=== PATIENT | male | born 1980 | race Caucasian/White ===

== ENCOUNTER 2017-04-17 11:25 | Outpatient (RCR) | payer OTHER ==
[2017-04-11 19:30] VITALS: BP 136/89
[2017-04-11 19:42] VITALS: BP 136/89
[2017-04-11 19:45] VITALS: BP 136/89
[2017-04-12 08:47] LABS: BUN/CREATININE RATIO 28; CALCIUM 9.4 MG/DL (8.5-10.1); CARBON DIOXIDE 22 MMOL/L (21-32); CHLORIDE 106 MMOL/L (98-107); CREATININE SERUM 0.69 MG/DL (0.60-1.30); GFR ESTIMATED > 60; GLUCOSE 97 MG/DL (70-105); POTASSIUM 4.2 MMOL/L (3.6-5.0); SODIUM 138 MMOL/L (135-145)
[2017-04-12 09:17] VITALS: BP_SYST 118; BP_SYST 136; BP_DIAS 82; BP_DIAS 89
[2017-04-12 20:55] VITALS: BP 149/97
[2017-04-13 10:00] VITALS: BP 137/97
--- NOTE | 2017-04-13 11:44 | Physician Query-Final Dx ---
JAZIEL ADLER 04/13/17 1144: Clinic Account Progress/Dx Physician Query: Please give a diagnosis for the patients Vancomycin treatment thank you Date of Service Apr 13, 2017 at 10:08 JE CAMARGO 05/11/17 1516: JAZIEL ADLER Apr 13, 2017 11:44 JE CAMARGO May 11, 2017 15:16
[2017-04-13] MEDS: VANCOMYCIN INJECTION 1,750 MG in NS IV 500 ML 500 ML IV SCH ×2 (11:56→20:36)
[2017-04-13 22:42] VITALS: BP 136/86
[2017-04-14] MEDS: CATHETER FLUSH 10 ML SYR IV PRN ×2 (10:54→12:55)
[2017-04-14] MEDS: VANCOMYCIN INJECTION 1,750 MG in NS IV 500 ML 500 ML IV SCH (10:55)
[2017-04-14 13:29] VITALS: BP 134/96
[2017-04-14] MEDS: VANCOMYCIN INJECTION 2,000 MG in NS IV 500 ML 500 ML IV SCH (21:22)
[2017-04-15 01:29] VITALS: BP 140/95
[2017-04-15] MEDS: VANCOMYCIN INJECTION 2,000 MG in NS IV 500 ML 500 ML IV SCH ×2 (11:15→20:29)
[2017-04-15] MEDS: CATHETER FLUSH 10 ML SYR IV PRN (11:15)
[2017-04-15 12:19] VITALS: BP 138/104
[2017-04-15 12:21] VITALS: BP 138/104
[2017-04-15 13:31] VITALS: BP 138/104
[2017-04-15 23:35] VITALS: BP 129/88
[2017-04-16 12:00] VITALS: BP 131/93
[2017-04-16] MEDS: CATHETER FLUSH 10 ML SYR IV PRN (12:28)
[2017-04-16] MEDS: VANCOMYCIN INJECTION 2,000 MG in NS IV 500 ML 500 ML IV SCH ×2 (12:28→20:43)
[2017-04-16 22:51] VITALS: BP 135/85
[~2017-04-17] VITALS: Ht 180.3 cm; Wt 79.4 kg
[~2017-04-17 11:25] MED LIST: ACHD5005 PO; METH4TAB PO; NAPR-243 PO; NS (IVPB) 0 ML ONE; NS (IVPB) 250 ML ONE; PENI500T PO; TROUGH ORDER-PHARMACY XX NR; TROUGH ORDER-PHARMACY XX ONE; VANCOMYCIN 1000 MG/VIAL ONE; VANCOMYCIN 1250 MG/NS 250 ML IVPB IV SCH; VANCOMYCIN 1500 MG/NS 500 ML IVPB IV NR
[2017-04-17] MEDS ORDERED: PRD20T PO (12:56)
[2017-04-17] MEDS ORDERED: SULF1TAB35 PO (12:56)
== END 2017-07-10 | disposition home or self-care (01) ==
LOC: 4TH RCR 11:25
PROVIDERS: ATTEND Emergency Medicine
DX: A49.02 Methicillin resistant Staphylococcus aureus infection, unspecified site (principal)
CPT/HCPCS: 36415; 80048; 80202; 96365; 96366

== ENCOUNTER 2017-10-11 16:06 | Inpatient (IN) | payer OTHER ==
[~2017-10-11] VITALS: Ht 180.3 cm; Wt 86.6 kg
[~2017-10-11 16:06] MED LIST changes: -NS (IVPB) 0 ML ONE; -NS (IVPB) 250 ML ONE; +PRD20T PO; +SULF1TAB35 PO; -TROUGH ORDER-PHARMACY XX NR; -TROUGH ORDER-PHARMACY XX ONE; -VANCOMYCIN 1000 MG/VIAL ONE; -VANCOMYCIN 1250 MG/NS 250 ML IVPB IV SCH; -VANCOMYCIN 1500 MG/NS 500 ML IVPB IV NR
[2017-10-11] MEDS ORDERED: LACTATED RINGERS 1,000 ML IV ONE (16:21)
[2017-10-11] MEDS ORDERED: ONDANSETRON 4 MG/2 ML (SDV) Z0FRAN IVP PRN (16:30)
--- NOTE | 2017-10-11 16:30 | ED General ---
General Stated Complaint: NOT EATEN SINCE THURSDAY Source of Information: Patient, EMS, Old Records Exam Limitations: No Limitations History of Present Illness Date Seen by Provider: October 11, 2017 Time Seen by Provider: 16:14 Initial Comments The patient resents to the ER by EMS with a chief complaint that he woke up today feeling very poorly. He was not feeling well yesterday but today he is having nausea with vomiting times one with no blood in it. No diarrhea or constipation. He says he felt feverish yesterday but has not checked her temperature. He did take some Tylenol this morning. He is not to keep anything down. He also has a very dry mouth. He says for the past week he discovered his dog had been killed by some other neighborhood dog so he has been very depressed and not been eating or drinking and then today woke up just feeling very poorly and sick. He does have a history of high blood pressure but does not take any medicines for anything for the past for 5 years because he stopped following with [facility]. He also incidentally found a nodule on his liver for 5 years ago on an MRI of his spine that he never followed up on. He denies having HIV, hepatitis or any IV drug use or tattoos from unlicensed [facility]. He also has a history of prolapsed mitral valve that was repaired by judge in [place] many years ago. EMS reports he is tachycardic 120s to 130s and received 4 mg Zofran en route. They started a liter of saline. Allergies and Home Medications Allergies Coded Allergies: tramadol (Unverified Allergy, Intermediate, STOMACH UPSET, 08/15/09) vancomycin (Verified Allergy, Intermediate, 04/17/17) Uncoded Allergies: [id number] (DARVOCET A500) (Allergy, Mild, SWELLING, 01/12/09) Tylenol w/ Codiene (Allergy, Mild, rash, itching, mild swelling, 01/12/09) Home Medications Methylprednisolone 4 Mg Tab.ds.pk, 4 MG PO UD Prescribed by: MISBAH SERRANO on 03/25/15 1419 Naproxen 500 Mg Tablet, 1 EACH PO TID PRN FOR PAIN Prescribed by: ERENDIRA MCGREGOR on 08/15/09 2133 Penicillin V Potassium 500 Mg Tablet, 1 TAB PO QID FOR INFECTION Prescribed by: ERENDIRA MCGREGOR on 08/15/092132 Prednisone 20 Mg Tab, 40 MG PO DAILY Prescribed by: MISBAH SERRANO on 04/17/17 1256 Sulfamethoxazole/Trimethoprim 1 Each Tablet, 1 EACH PO BID Prescribed by: MISBAH SERRANO on 04/17/17 1256 Patient Home Medication List Home Medication List Reviewed: Yes Review of Systems Constitutional: No chills, No diaphoresis EENTM: No ear discharge, No ear pain Respiratory: cough (he states chronic); No phlegm, No short of breath, No wheezing Cardiovascular: see HPI; No chest pain, No edema; Hx of Intervention; No palpitations, No syncope, No vascular heart diseas Gastrointestinal: abdominal pain (all over); No constipation, No diarrhea; nausea, vomiting Genitourinary: No discharge, No dysuria Musculoskeletal: No back pain, No joint pain Skin: No pruritus, No rash Psychiatric/Neurological: Denies Headache, Denies Numbness, Denies Paresthesia Past Bpezafl-Mevnbf-Yxeuud Hx Patient Social History Alcohol Use: Regular Use Alcohol Beverage of Choice: Whiskey (approximately one week last drink was yesterday afternoon) Recreational Drug Use: No Smoking Status: Current Everyday Smoker Type Used: Cigarettes (one pack per day) 2nd Hand Smoke Exposure: No Recent Hopitalizations: No Seasonal Allergies Seasonal Allergies: No Past Medical History Surgeries: Yes (r lnee, l hand, r ahoulder, l nava, head) Abdominal, Orthopedic Respiratory: Yes (asthma) Cardiac: Yes (MITRAL VALVE PROLAPSE WITH REGURGITATION) Hypertension Neurological: No Reproductive Disorders: No Genitourinary: No Gastrointestinal: No Musculoskeletal: Yes (HAS BEEN TOLD HAS OSTEOARTHRITIS IN RIGHT HIP) Degenerate Disk Disease Endocrine: No Psychosocial: Yes Anxiety Integumentary: Yes (hx mrsa) Blood Disorders: No Physical Exam-Suspected Sepsis Physical Exam Vital Signs Vital Signs - First Documented 10/11/17 16:09 Temp 97.6 Pulse 139 Resp 22 B/P (MAP) 147/112 (124) O2 Delivery Room Air Capillary Refill : General Appearance: Anxious, Mild Distress Eyes: Bilateral Eye Normal Inspection, Bilateral Eye PERRL, Bilateral Eye EOMI HEENT: PERRL/EOMI, TMs Normal, Normal ENT Inspection; No Moist Mucous Membranes ; Other (oropharynx dry with a thin white plaque on the tongue) Neck: Full Range of Motion, Non Tender, Supple Respiratory: Chest Non Tender, Lungs Clear, Normal Breath Sounds, No Accessory Muscle Use, No Respiratory Distress Cardiovascular: Regular Rate, Rhythm, No Edema, Normal Peripheral Pulses Gastrointestinal: Normal Bowel Sounds, Guarding (epigastric); No Rebound; Tenderness (all over especially epigastric) Back: Normal Inspection, No Vertebral Tenderness Extremity: Normal Capillary Refill, Non Tender, No Calf Tenderness, No Pedal Edema Neurologic/Psychiatric: Alert, Oriented x3, Other (anxious affect) Skin: diaphoresis, other (warm) Lymphatic: No Adenopathy Focused Exam Lactate Level 10/11/17 17:06: Lactic Acid Level 3.84*H Lactic Acid Level Laboratory Tests Test 10/11/17 17:06 Lactic Acid Level 3.84 MMOL/L (0.50-2.00) *H Progress/Results/Core Measures Suspected Sepsis SIRS Temperature: Pulse: Respiratory Rate: Laboratory Tests 10/11/17 16:10: White Blood Count 8.5 Blood Pressure / Mean: 10/11/17 17:06: Lactic Acid Level 3.84*H Laboratory Tests 10/11/17 16:10: Creatinine 0.77, INR Comment 0.9, Platelet Count 140, Total Bilirubin 2.1H Results/Orders Lab Results Laboratory Tests Test 10/11/17 16:10 10/11/17 16:24 10/11/17 16:25 10/11/17 16:30 Range/Units White Blood Count 8.5 4.3-11.0 10^3/uL Red Blood Count 4.51 4.35-5.85 10^6/uL Hemoglobin 14.5 13.3-17.7 G/DL Hematocrit 41 40-54 % Mean Corpuscular Volume 90 80-99 FL Mean Corpuscular Hemoglobin 32 25-34 PG Mean Corpuscular Hemoglobin Concent 36 32-36 G/DL Red Cell Distribution Width 14.4 10.0-14.5 % Platelet Count 140 130-400 10^3/uL Mean Platelet Volume 9.7 7.4-10.4 FL Neutrophils (%) (Auto) 79 H 42-75 % Lymphocytes (%) (Auto) 12 12-44 % Monocytes (%) (Auto) 9 0-12 % Eosinophils (%) (Auto) 0 0-10 % Basophils (%) (Auto) 0 0-10 % Neutrophils # (Auto) 6.8 1.8-7.8 X 10^3 Lymphocytes # (Auto) 1.0 1.0-4.0 X 10^3 Monocytes # (Auto) 0.8 0.0-1.0 X 10^3 Eosinophils # (Auto) 0.0 0.0-0.3 10^3/uL Basophils # (Auto) 0.0 0.0-0.1 10^3/uL Prothrombin Time 12.7 12.2-14.7 SEC INR Comment 0.9 0.8-1.4 Activated Partial Thromboplast Time 23 L 24-35 SEC Sodium Level 137 135-145 MMOL/L Potassium Level 3.2 L 3.6-5.0 MMOL/L Chloride Level 92 L 98-107 MMOL/L Carbon Dioxide Level 14 L 21-32 MMOL/L Anion Gap 31 H 5-14 MMOL/L Blood Urea Nitrogen 13 7-18 MG/DL Creatinine 0.77 0.60-1.30 MG/DL Estimat Glomerular Filtration Rate > 60 BUN/Creatinine Ratio 17 Glucose Level 118 H 70-105 MG/DL Calcium Level 9.6 8.5-10.1 MG/DL Total Bilirubin 2.1 H 0.1-1.0 MG/DL Aspartate Amino Transf (AST/SGOT) 499 H 5-34 U/L Alanine Aminotransferase (ALT/SGPT) 302 H 0-55 U/L Alkaline Phosphatase 105 40-136 U/L Troponin I < 0.30 <0.30 NG/ML Total Protein 7.1 6.4-8.2 GM/DL Albumin 4.8 H 3.2-4.5 GM/DL Lipase 74 8-78 U/L Serum Alcohol 29 H <10 MG/DL Salicylates Level < 5.0 L 5.0-20.0 MG/DL Acetaminophen Level < 10 L 10-30 UG/ML Group A Streptococcus Screen NEGATIVE NEGATIVE Urine Color JOSE A H Urine Clarity SLIGHTLY CLOUDY Urine pH 5 5-9 Urine Specific Embarrass 1.025 H 1.016-1.022 Urine Protein 3+ H NEGATIVE Urine Glucose (UA) NEGATIVE NEGATIVE Urine Ketones 4+ H NEGATIVE Urine Nitrite NEGATIVE NEGATIVE Urine Bilirubin 1+ H NEGATIVE Urine Urobilinogen 4 H NORMAL MG/DL Urine Leukocyte Esterase 1+ H NEGATIVE Urine RBC (Auto) 1+ H NEGATIVE Urine RBC RARE /HPF Urine WBC NONE /HPF Urine Squamous Epithelial Cells 0-2 /HPF Urine Crystals NONE /LPF Urine Bacteria NEGATIVE /HPF Urine Casts PRESENT /LPF Urine Hyaline Casts 0-2 H /LPF Urine Mucus SMALL H /LPF Urine Culture Indicated NO Urine Opiates Screen POSITIVE H NEGATIVE Urine Oxycodone Screen NEGATIVE NEGATIVE Urine Methadone Screen NEGATIVE NEGATIVE Urine Propoxyphene Screen NEGATIVE NEGATIVE Urine Barbiturates Screen NEGATIVE NEGATIVE Ur Tricyclic Antidepressants Screen NEGATIVE NEGATIVE Urine Phencyclidine Screen NEGATIVE NEGATIVE Urine Amphetamines Screen NEGATIVE NEGATIVE Urine Methamphetamines Screen NEGATIVE NEGATIVE Urine Benzodiazepines Screen NEGATIVE NEGATIVE Urine Cocaine Screen NEGATIVE NEGATIVE Urine Cannabinoids Screen NEGATIVE NEGATIVE Test 10/11/17 17:06 Range/Units Lactic Acid Level 3.84 *H 0.50-2.00 MMOL/L Micro Results Microbiology 10/11/17 EVITA Preparation - Final, Complete 10/11/17 Influenza Types A,B Antigen (BELKIS) - Final, Complete My Orders Orders - RADHA TOPETE Influenza A And B Antigens (10/11/17 16:21) Rapid Strep A Screen (10/11/17 16:21) Post Void Residual Assessment (10/11/17 16:21) Accucheck Stat ONCE (10/11/17 16:21) Cbc With Automated Diff (10/11/17 16:21) Comprehensive Metabolic Panel (10/11/17 16:21) Lactic Acid Analyzer (10/11/17 16:21) Blood Culture (10/11/17 16:21) Sputum Culture (10/11/17 16:21) Ua Culture If Indicated (10/11/17 16:21) Protime With Inr (10/11/17 16:21) Partial Thromboplastin Time (10/11/17 16:21) Chest 1 View, Ap/Pa Only (10/11/17 16:21) O2 (10/11/17 16:21) Ondansetron Injection (Zofran Injectio (10/11/17 16:30) Saline Lock/Iv-Start (10/11/17 16:21) Saline Lock/Iv-Start (10/11/17 16:21) Ekg Tracing (10/11/17 16:21) Troponin I (10/11/17 16:21) Vital Signs Adult Sepsis Patie Q1H (10/11/17 16:21) Remove Rings In Anticipation O (10/11/17 16:21) Saline Lock/Iv-Start (10/11/17 16:21) Lactated Ringers (Lr 1000 Ml Iv Solution (10/11/17 16:21) Fentanyl Injection (Sublimaze Injection (10/11/17 16:45) Alcohol (10/11/17 16:33) Evita Prep (10/11/17 16:33) Drug Screen Stat (Urine) (10/11/17 16:33) Ct Abdomen/Pelvis W (10/11/17 16:33) Lipase (10/11/17 16:38) Iohexol Injection (Omnipaque 350 Mg/Ml 1 (10/11/17 17:00) Ns (Ivpb) (Sodium Chloride 0.9% Ivpb Bag (10/11/17 17:00) Acetaminophen (10/11/17 16:59) Salicylate (10/11/17 16:59) Piperacillin Sodium/Tazobactam (Zosyn Vi (10/11/17 17:45) Ketorolac Injection (Toradol Injection) (10/11/17 17:45) Medications Given in ED Current Medications Medications Dose Ordered Sig/Brant Route Start Time Stop Time Status Last Admin Dose Admin Fentanyl Citrate 50 mcg ONCE ONCE IVP 10/11/17 16:45 10/11/17 16:46 DC 10/11/17 16:46 50 MCG Iohexol 100 ml ONCE ONCE IV 10/11/17 17:00 10/11/17 17:01 DC 10/11/17 17:10 100 ML Lactated Ringer's 1,000 ml @ 0 mls/hr Q0M ONCE IV 10/11/17 16:21 10/11/17 16:25 DC 10/11/17 17:27 1,000 MLS/HR Ondansetron HCl 4 mg ONCE PRN IVP 10/11/17 16:30 10/11/17 16:38 DC 10/11/17 16:37 4 MG Piperacillin Sod/ Tazobactam Sod 4.5 gm/Sodium Chloride 100 ml @ 200 mls/hr ONCE ONCE IV 10/11/17 17:45 10/11/17 18:14 DC 10/11/17 18:13 200 MLS/HR Sodium Chloride 100 ml ONCE ONCE IV 10/11/17 17:00 10/11/17 17:01 DC 10/11/17 17:10 100 ML Vital Signs/I&O 10/11/17 16:09 Temp 97.6 Pulse 139 Resp 22 B/P (MAP) 147/112 (124) O2 Delivery Room Air Capillary Refill : Progress Note #1: Time: 16:31 Progress Note Tachycardia possible fever with using acetaminophen today which could be masking it. EMS reports a temperature of 99. We will do a septic workup and also given EtOH level to see if that's gotten low enough to possibly cause DVTs but unlikely if it's been 24 hours. We'll also do a EVITA prep of his tongue see if there is any fungal elements. Rapid strep and influenza swab. Urinalysis and urine drug screen. Pain and nausea meds. Is matted white tongue could be just because he is dehydrated and not been taking care of himself lately or could be thrush which would raise our suspicion for an immunocompromised patient so we are getting a EVITA prep of the tongue. CT abdomen pelvis for his tender belly and nausea and vomiting concern for obstruction versus gallbladder versus pancreatitis versus PUD versus other. In addition to the liter of saline he's gotten we'll give him another liter of LR which would bring him up to 1 10 mL/kg. We'll do an Accu-Chek to see if there is evidence of diabetes or hypoglycemia. Because of his tachycardia we'll obtain an EKG and troponin thinking about myocarditis or other possible causes of tachycardia. Because of his urinary hesitancy we're going to do a postvoid residual. Progress Note #2: Time: 17:03 Progress Note High anion gap metabolic acidosis. Probably from lactic acidosis but the lactate is not back yet I added an acetaminophen and aspirin. He denies any toxic metabolites or toxic alcohol ingestion. His alcohol level was fairly low but no risk of DTs. ECG Initial ECG Impression Date: October 11, 2017 Initial ECG Impression Time: 16:52 Initial ECG Rate: 110 Initial ECG Rhythm: S.Tach Initial ECG Intervals: QT (471) Initial ECG Impression: Nonspecific Changes (sinus tachycardia) Initial ECG Comparisson: No Previous ECG Available Comment No T-wave elevation or depression. Diagnostic Imaging Diagonstic Imaging: Xray Plain Films/CT/US/NM/MRI: chest (1v) Comments [facility] [place], [place] NAME: RHYS ANAND [facility] REC#: [id number] PT STATUS: REG ER : 1980 PHYSICIAN: RADHA TOPETE MD ADMIT DATE: 10/11/17/ER Draft Date of Exam:10/11/17 CHEST 1 VIEW, AP/PA ONLY INDICATION: Pain. FINDINGS: The lungs are clear. The heart size and vascularity normal. There is no effusion or pneumothorax. IMPRESSION: Normal frontal chest x-ray. Dictated on workstation # [id number] Dict: 10/11/17 1715 Trans: 10/11/17 1722 [id number] Interpreted by: DEVON MCCOY Electronically signed by: Reviewed: Reviewed by Nh Diagonstic Imaging: CT (with contrast) Plain Films/CT/US/NM/MRI: abdomen, pelvis Comments [place]IA [place], [place] NAME: RHYS ANAND [facility] REC#: [id number] PT STATUS: REG ER : 1980 PHYSICIAN: RADHA TOPETE MD ADMIT DATE: 10/11/17/ER Draft Date of Exam:10/11/17 CT ABDOMEN/PELVIS W PROCEDURE: CT abdomen and pelvis with contrast. TECHNIQUE: Multiple contiguous axial images were obtained through the abdomen and pelvis after administration of intravenous contrast. INDICATION: Nausea and vomiting. COMPARISON: None. FINDINGS: There is a moderate degree of fatty infiltration of the liver. The pancreas appears nonacute, the gallbladder is surgically absent, no bile duct dilatation. The adrenals and spleen are negative. The kidneys are unobstructed and nonacute. Aortoiliac and mesenteric vessels are patent and nonaneurysmal. There is some noninflamed sigmoid diverticuli present. The air-containing appendix is well-visualized and normal. We do acknowledge some low-density thickening of the benito of the colon, diffusely. Mild colitis could not be excluded. There was, however, no pericolonic edema. No pneumatosis or free gas. No bowel obstruction or abscess. The unobstructed small bowel appears nonfocal and nonacute. Prostate, seminal vesicles and urinary bladder are unremarkable. IMPRESSION: 1. Fatty liver without bile duct dilatation and no evidence for acute pancreatitis. 2. Some low-density thickening of the benito of the colon which can be seen as a chronic finding owing to recurrent episodes of inflammation, however, mild active colitis could not be excluded. Noninflamed diverticulosis is noted. Normal appendix. No obstruction, perforation, abscess or ascites. 3. Remaining solid and hollow viscera are unremarkable. Dictated on workstation # [id number] Dict: 10/11/17 1734 Trans: 10/11/17 1741 [id number] Interpreted by: DEVON MCCOY Electronically signed by: Reviewed: Reviewed by Me Departure Communication (Admissions) Time/Spoke to Admitting Phy: 18:20 Discussed the case lab imaging findings with Dr. Obando. Reviewed the CT exam and there is not any likelihood of a dissection of the aorta. She is okay with IV fluids, nothing by mouth, Zosyn and Flagyl. Impression Primary Impression: Sepsis Qualified Codes: A41.9 - Sepsis, unspecified organism Additional Impressions: Colitis Hypokalemia Disposition: ADMITTED INPATIENT Condition: Improved Admissions Decision to Admit Reason: Admit from ER (General) Decision to Admit/Date: October 11, 2017 Time/Decision to Admit Time: 18:25 Departure-Patient Inst. Referrals: NO,LOCAL PHYSICIAN (PCP/Family) Primary Care Physician RADHA TOPETE October 11, 2017 16:30
[2017-10-11 16:38] LABS: BASOPHILS % (AUTO) 0 % (0-10); EOSINOPHILS % (AUTO) 0 % (0-10); HEMATOCRIT 41 % (40-54); HEMOGLOBIN 14.5 G/DL (13.3-17.7); INR 0.9 (0.8-1.4); LYMPHOCYTES % (AUTO) 12 % (12-44); MEAN CORPUSCULAR HEMOGLOBIN 32 PG (25-34); MEAN CORPUSCULAR HGB CONC 36 G/DL (32-36); MEAN CORPUSCULAR VOLUME 90 FL (80-99); MEAN PLATELET VOLUME 9.7 FL (7.4-10.4); MONOCYTES # (AUTO) 0.8 X 10^3 (0.0-1.0); MONOCYTES % (AUTO) 9 % (0-12); NEUTROPHILS # (AUTO) 6.8 X 10^3 (1.8-7.8); NEUTROPHILS % (AUTO) 79 % (42-75); PLATELET COUNT 140 10^3/uL (130-400); PROTHROMBIN TIME PATIENT 12.7 SEC (12.2-14.7); RED BLOOD COUNT 4.51 10^6/uL (4.35-5.85); RED CELL DISTRIBUTION WIDTH 14.4 % (10.0-14.5); WHITE BLOOD COUNT 8.5 10^3/uL (4.3-11.0)
[2017-10-11 16:40] LABS: CLARITY,URINE SLIGHTLY CLOUDY; COLOR,URINE AMBER; GLUCOSE, URINE (UA) NEGATIVE (NEGATIVE); KETONES,URINE 4+ (NEGATIVE); LEUKOCYTE ESTERASE ,URINE 1+ (NEGATIVE); NITRITE,URINE NEGATIVE (NEGATIVE); PH,URINE 5 (5-9); PROTEIN,URINE 3+ (NEGATIVE); UROBILINOGEN,URINE 4 MG/DL (NORMAL)
[2017-10-11] MEDS ORDERED: fentaNYL INJECTION 100 MCG/2 ML AMP IVP ONE ×2 (16:45→19:30)
[2017-10-11 16:46] LABS: BACTERIA,URINE NEGATIVE /HPF; BILIRUBIN,URINE 1+ (NEGATIVE); HYALINE CASTS, URINE 0-2 /LPF; RBC,URINE RARE /HPF; SQUAMOUS EPITHELIAL CELL,UR 0-2 /HPF
[2017-10-11 16:52] LABS: ALANINE AMINOTRANSFERASE 302 U/L (0-55); ALBUMIN 4.8 GM/DL (3.2-4.5); ALKALINE PHOSPHATASE 105 U/L (40-136); BILIRUBIN,TOTAL 2.1 MG/DL (0.1-1.0); BUN/CREATININE RATIO 17; CALCIUM 9.6 MG/DL (8.5-10.1); CARBON DIOXIDE 14 MMOL/L (21-32); CHLORIDE 92 MMOL/L (98-107); CREATININE SERUM 0.77 MG/DL (0.60-1.30); GFR ESTIMATED > 60; GLUCOSE 118 MG/DL (70-105); POTASSIUM 3.2 MMOL/L (3.6-5.0); SODIUM 137 MMOL/L (135-145); TOTAL PROTEIN 7.1 GM/DL (6.4-8.2)
[2017-10-11 16:54] LABS: LIPASE 74 U/L (8-78)
[2017-10-11 16:56] LABS: AMPHETAMINE SCREEN, URINE NEGATIVE (NEGATIVE); BARBITURATE SCREEN URINE NEGATIVE (NEGATIVE); BENZODIAZEPINES SCREEN URINE NEGATIVE (NEGATIVE); CANNABINOID SCREEN, URINE NEGATIVE (NEGATIVE); COCAINE SCREEN URINE NEGATIVE (NEGATIVE); METHADONE STAT NEGATIVE (NEGATIVE); METHAMPHETAMINE SCREEN URINE S NEGATIVE (NEGATIVE); OPIATE SCREEN URINE POSITIVE (NEGATIVE); OXYCODONE STAT NEGATIVE (NEGATIVE); PROPOXYPHENE STAT NEGATIVE (NEGATIVE); TRICYCLIC ANTIDEPRESSANTS SCRE NEGATIVE (NEGATIVE)
[2017-10-11] MEDS ORDERED: IOHEXOL 350 MG/ML 100 ML (OMNIPAQUE 350) VIAL IV ONE (17:00)
[2017-10-11] MEDS ORDERED: NS 100 ML (IVPB) BAG IV ONE (17:00)
[2017-10-11 17:19] LABS: ACETAMINOPHEN < 10 UG/ML (10-30); SALICYLATE < 5.0 MG/DL (5.0-20.0)
--- NOTE | 2017-10-11 17:23 | Diagnostic Imaging Report ---
INDICATION: Pain. FINDINGS: The lungs are clear. The heart size and vascularity normal. There is no effusion or pneumothorax. IMPRESSION: Normal frontal chest x-ray. Dictated by: Dictated on workstation # [id number]
--- NOTE | 2017-10-11 17:42 | Diagnostic Imaging Report ---
PROCEDURE: CT abdomen and pelvis with contrast. TECHNIQUE: Multiple contiguous axial images were obtained through the abdomen and pelvis after administration of intravenous contrast. INDICATION: Nausea and vomiting. COMPARISON: None. FINDINGS: There is a moderate degree of fatty infiltration of the liver. The pancreas appears nonacute, the gallbladder is surgically absent, no bile duct dilatation. The adrenals and spleen are negative. The kidneys are unobstructed and nonacute. Aortoiliac and mesenteric vessels are patent and nonaneurysmal. There is some noninflamed sigmoid diverticuli present. The air-containing appendix is well-visualized and normal. We do acknowledge some low-density thickening of the benito of the colon, diffusely. Mild colitis could not be excluded. There was, however, no pericolonic edema. No pneumatosis or free gas. No bowel obstruction or abscess. The unobstructed small bowel appears nonfocal and nonacute. Prostate, seminal vesicles and urinary bladder are unremarkable. IMPRESSION: 1. Fatty liver without bile duct dilatation and no evidence for acute pancreatitis. 2. Some low-density thickening of the benito of the colon which can be seen as a chronic finding owing to recurrent episodes of inflammation, however, mild active colitis could not be excluded. Noninflamed diverticulosis is noted. Normal appendix. No obstruction, perforation, abscess or ascites. 3. Remaining solid and hollow viscera are unremarkable. Dictated by: Dictated on workstation # [id number]
[2017-10-11] MEDS ORDERED: PIPERACILLIN SODIUM/TAZOBACTAM 4.5 GM in NS (IVPB) 100 ML IV ONE (17:45)
[2017-10-11] MEDS ORDERED: KETOROLAC 30 MG/ML VIAL IVP ONE (17:45)
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
--- OUTSIDE RECORDS SUMMARY | 2017-10-11 18:53 | XMS REPORT | Clinical Summary ---
Author Author [facility] Organization [facility] Address Unknown Phone Unavailable Care Team Providers Care Manager [employer] Name Role Phone Alejandra Reynolds PCP Source Comments Some departments are not documenting in the electronic medical record. If you do not see the information that you expected, contact Release of Information in the Health Information Management department at [phone] for further assistance in locating additional records.[facility] Allergies Not on File Current Medications Not on file Active Problems Not on file Social History Tobacco Use Types Packs/Day Years Used Date Never Assessed Sex Assigned at Date Recorded Not on file Last Filed Vital Signs Not on file Plan of Treatment Health Maintenance Due Date Last Done Comments PHYSICAL (COMPREHENSIVE) 1989 EXAM PERTUSSIS VACCINE 1993 HIV SCREENING 1997 TETANUS VACCINE 1999 INFLUENZA VACCINE 03/08/2018 Results Not on filefrom Last 3 Months
--- OUTSIDE RECORDS SUMMARY | 2017-10-11 18:53 | XMS REPORT | Clinical Summary ---
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 Disp. Refills Start End Date Status Date Cetirizine HCl (ZYRTEC one daily 0 11/27/19 Active ALLERGY) 10 MG CAPS 13 prazosin (MINIPRESS) 2 MG 1-2 cap po qhs 60 capsule 5 03/21/20 Active capsule 13 ALPRAZolam (XANAX) 0.25 Take 1 tablet (0.25 mg 30 tablet 5 03/21/20 Active MG tablet total) by mouth daily as 13 needed for Anxiety (anxiety attacks). naproxen (NAPROSYN) 500 Take 1 tablet (500 mg 60 tablet 5 03/21/20 Active MG tablet total) by mouth 2 (two) 13 times daily. pregabalin (LYRICA) 75 MG Take 1 capsule (75 mg 60 capsule 5 03/21/20 Active capsule total) by mouth 2 (two) 13 times daily. hydrocodone-acetaminophen Take 1 tablet by mouth 120 tablet 0 Active (NORCO) 7.5-325 MG every 6 (six) hours as 13 needed for Pain. fexofenadine (ANGELA) Take 1 tablet (180 mg 30 tablet 4 04/06/20 Active 180 MG tablet total) by mouth 2 (two) 13 times daily. For allergy citalopram (CELEXA) 20 MG Take 1 tablet (20 mg 40 tablet 4 04/06/20 Active tablet total) by mouth daily. 13 For depression triazolam (HALCION) 0.25 0.5 tab po qhs for sleep 30 tablet 3 Active MG tablet 13 oxycodone-acetaminophen 1 tab po qhs for chronic 40 tablet 0 20 Active (PERCOCET) 5-325 MG back pain 13 Active Problems Problem Noted Date Mitral valve disorders(424.0) Other osteoporosis Immunizations Name Dates Previously Given Next Due DTP ([facility] registry) 06/19/1988 Influenza IIV3 PFree 04/06/2013 Influenza TIV (HX thru 05/07/2011 Mar 07 2010) MMR 10/16/1993, 10/19/1986 OPV ([facility] registry) 06/19/1988 Pneumococcal 05/07/2011 Polysaccharide (23-valent) Td(adult), adsorbed 09/16/1995 Family History Medical History Relation Name Comments Other Other Mother - CHF Other Other Father - Unknown Other Other Family History Comments - Two Brothers with heart murmur's, Relation Name Status Comments Father Alive Mother Alive Other Other Other Social History Tobacco Use Types Packs/Day Years Used Date Current Every Day Smoker Cigarettes 1 Comments: Smoking History Packs/day: Unknown/Cigarettes/1/2 to 1 pack daily Sex Assigned at Date Recorded Not on file Last Filed Vital Signs Vital Sign Reading Time Taken Blood Pressure 122/80 04/06/2013 8:15 AM CDT Pulse 82 04/06/2013 8:15 AM CDT Temperature - - Respiratory Rate 16 04/06/2013 8:15 AM CDT Oxygen Saturation - - Inhaled Oxygen - - Concentration Weight 87.5 kg (193 lb) 04/06/2013 8:15 AM CDT Height 177.8 cm (5' 10") 04/06/2013 8:15 AM CDT Body Mass Index 27.69 04/06/2013 8:15 AM CDT Plan of Treatment Health Maintenance Due Date Last Done Comments Varicella Vaccines (1 of 1995 2 - 2 Dose Adolescent Series) DTaP,Tdap,and Td Vaccines 2001 09/16/1995, 06/19/1988 (3 - Tdap) Influenza Vaccine (Season 02/06/2018 04/06/2013, 05/07/2011 Ended) Results Not on filefrom Last 3 Months
[2017-10-11] MEDS ORDERED: PROMETHAZINE INJ 25 MG/ML (PHENERGAN) AMP IM ONE (19:30)
[2017-10-11 20:35] VITALS: BP 170/105
[2017-10-11] MEDS: NS W/KCL 20 MEQ/L 1,000 ML IV SCH (21:29)
[2017-10-11] MEDS ORDERED: POTASSIUM CHLORIDE INJ 40 MEQ in 1/2 NS IV SOLUTION 1,000 ML IV SCH (21:30)
[2017-10-11] MEDS: fentaNYL INJECTION 100 MCG/2 ML AMP IV PRN ×2 (21:35→23:46)
[2017-10-11] MEDS: metroNIDAZOLE 500 MG/100 ML IVPB (PRE-MIX) IV SCH (21:41)
[2017-10-11] MEDS ORDERED: NITROGLYCERIN 2% OINT 1 GM UNIT DOSE PACKET TOP PRN (22:15)
[2017-10-12 00:45] VITALS: BP 155/98
[2017-10-12] MEDS: PIPERACILLIN SODIUM/TAZOBACTAM 4.5 GM in NS (IVPB) 100 ML IV SCH ×2 (03:29→09:35)
[2017-10-12 03:50] VITALS: BP 152/91
[2017-10-12] MEDS: fentaNYL INJECTION 100 MCG/2 ML AMP IV PRN ×6 (04:18→21:37)
[2017-10-12] MEDS: ONDANSETRON 4 MG/2 ML (SDV) Z0FRAN IV PRN ×2 (04:18→09:34)
[2017-10-12] MEDS: metroNIDAZOLE 500 MG/100 ML IVPB (PRE-MIX) IV SCH ×2 (05:32→13:35)
[2017-10-12] MEDS: NS W/KCL 20 MEQ/L 1,000 ML IV SCH ×2 (05:32→13:35)
[2017-10-12 06:04] LABS: BASOPHILS % (AUTO) 0 % (0-10); EOSINOPHILS # (AUTO) 0.1 10^3/uL (0.0-0.3); EOSINOPHILS % (AUTO) 1 % (0-10); HEMATOCRIT 37 % (40-54); LYMPHOCYTES # (AUTO) 1.6 X 10^3 (1.0-4.0); LYMPHOCYTES % (AUTO) 22 % (12-44); MEAN CORPUSCULAR HEMOGLOBIN 32 PG (25-34); MEAN CORPUSCULAR HGB CONC 35 G/DL (32-36); MEAN CORPUSCULAR VOLUME 92 FL (80-99); MEAN PLATELET VOLUME 10.4 FL (7.4-10.4); MONOCYTES # (AUTO) 0.7 X 10^3 (0.0-1.0); MONOCYTES % (AUTO) 9 % (0-12); NEUTROPHILS # (AUTO) 4.9 X 10^3 (1.8-7.8); NEUTROPHILS % (AUTO) 67 % (42-75); PLATELET COUNT 93 10^3/uL (130-400); RED BLOOD COUNT 4.06 10^6/uL (4.35-5.85); RED CELL DISTRIBUTION WIDTH 14.3 % (10.0-14.5); WHITE BLOOD COUNT 7.2 10^3/uL (4.3-11.0)
[2017-10-12 06:22] LABS: ALANINE AMINOTRANSFERASE 192 U/L (0-55); ALKALINE PHOSPHATASE 78 U/L (40-136); BUN/CREATININE RATIO 15; CALCIUM 8.6 MG/DL (8.5-10.1); CARBON DIOXIDE 24 MMOL/L (21-32); CHLORIDE 98 MMOL/L (98-107); CREATININE SERUM 0.68 MG/DL (0.60-1.30); GFR ESTIMATED > 60; GLUCOSE 76 MG/DL (70-105); POTASSIUM 3.1 MMOL/L (3.6-5.0); SODIUM 137 MMOL/L (135-145)
[2017-10-12 08:30] VITALS: BP 139/95
[2017-10-12] MEDS ORDERED: IBUP-30 PO (09:55)
[2017-10-12] MEDS ORDERED: ACET-2267 PO (09:55)
[2017-10-12 12:30] VITALS: BP 150/85
--- NOTE | 2017-10-12 13:29 | History & Physical-Hospitalist ---
History of Present Illness HPI/Chief Complaint The patient is a 37-year-old white male who presented to the emergency room yesterday with a basic complaint of feeling very ill. He reported that one week ago today he had heard a commotion in his backyard and looked out to see to neighborhood dogs killing his dog. He had felt depressed and without appetite since that time he has a distant past history of a prolapsed mitral valve. EMS found him to be tachycardic with a rate of 120-130 and that he appeared nauseated and dehydrated. They started saline and gave him Zofran in route. There is also a past history of hypertension but he independently stopped medications. He gave me a history of multiple ailments he developed while on service. He reports that in addition to feeling nauseated and unable to eat that he has had balance problems. He states this seems to be as a function of severe brain injury suffered while in the . He reports that he has had no diarrhea or hematochezia. He has had nausea and vomiting. The laboratory done in the ER showed elevated liver enzymes which cannot be explained. He denies any past history of IV drug abuse. The CT scan suggested fatty liver and colonic inflammation. His initial laboratory showed a total bilirubin of 2.1 AST of 499 ALT of 302. This morning's laboratory shows a total bilirubin of 2.0 AST of 228 and ALT of 192. I looked through his old information and found a chemistry from 04/17/17 with normal enzymes. Also noted that initial lactic acid was 3.84 and a repeat 2 hours later was 1.8. The significance of this is unclear. Date Seen 10/12/17 Time Seen by Provider: 13:23 Attending Physician Cecilia Etienne MD PCP No,Local Physician Referring Physician Date of Admission October 11, 2017 at 18:25 Home Medications & Allergies Home Medications Reviewed patient Home Medication Reconciliation performed by pharmacy medication reconciliations mail carrier technician and/or nursing. Patients Allergies have been reviewed. Allergies Allergies Coded Allergies tramadol (Unverified Allergy, Intermediate, STOMACH UPSET, 08/15/09) vancomycin (Verified Allergy, Intermediate, 04/17/17) Uncoded Allergies [id number] (DARVOCET A500) ( Allergy, Mild, SWELLING, 01/12/09) Tylenol w/ Codiene ( Allergy, Mild, rash, itching, mild swelling, 01/12/09) Past Nwgxogm-Tjixui-Ggfqeo Hx Past Med/Social Hx: Reviewed Nursing Past Med/Soc Hx Patient Social History Alcohol Use: Regular Use Number of Drinks Today: 9 Alcohol Beverage of Choice: Whiskey Recreational Drug Use: No Smoking Status: Current Everyday Smoker Type Used: Cigarettes 2nd Hand Smoke Exposure: Yes Physical Abuse Screen: No Sexual Abuse: No Recent Foreign Travel: No Contact w/other who traveled: No Recent Hopitalizations: No Recent Infectious Disease Expo: No Seasonal Allergies Seasonal Allergies: No Past Medical History Surgeries: Abdominal, Orthopedic Cardiac: Hypertension Reproductive: No Musculoskeletal: Arthritis Psychosocial: Anxiety, PTSD History of Blood Disorders: No Review of Systems Constitutional: see HPI EENTM: no symptoms reported Respiratory: no symptoms reported Cardiovascular: no symptoms reported Gastrointestinal: see HPI, abdominal pain, loss of appetite, nausea, vomiting Genitourinary: no symptoms reported Musculoskeletal: no symptoms reported Skin: no symptoms reported Psychiatric/Neurological: Depressed Physical Exam Physical Exam Vital Signs Vital Signs - First Documented 10/11/17 10/11/17 16:09 20:11 Temp 97.6 Pulse 139 Resp 22 B/P (MAP) 147/112 (124) Pulse Ox 98 O2 Delivery Room Air Capillary Refill : Less Than 3 Seconds General Appearance: Other (flat affect) Eyes: Bilateral Eye Normal Inspection HEENT: Normal ENT Inspection Neck: Normal Inspection Respiratory: Chest Non Tender, Lungs Clear, Normal Breath Sounds, No Accessory Muscle Use, No Respiratory Distress Cardiovascular: Regular Rate, Rhythm, No Edema, No Gallop, No JVD, No Murmur, Normal Peripheral Pulses Back: Normal Inspection Extremity: Normal Capillary Refill, Normal Inspection, Normal Range of Motion, Non Tender, No Calf Tenderness, No Pedal Edema Neurologic/Psychiatric: Alert, Oriented x3, No Motor/Sensory Deficits, Normal Mood/Affect Skin: Normal Color Lymphatic: No Adenopathy Results Results/Procedures Labs Laboratory Tests 10/11/17 16:10 10/12/17 05:13 Patient resulted labs reviewed. Assessment/Plan Admission Diagnosis Abdominal pain nausea and vomiting. 2.acute hepatitis etiology unknown. 3.past history of hypertension. 4.past history of traumatic brain injury. Admission Status: Observation Assessment and Plan Continue IV fluids. Change antibiotics to Cipro and Flagyl. Clinical Quality Measures DVT/VTE Risk/Contraindication: Risk Factor Score Per Nursin RFS Level Per Nursing on Admit: 2=Moderate ODGERS,YURIY K MD October 12, 2017 13:29
[2017-10-12] MEDS: CIPROFLOXACIN IV 400MG/200ML 200 ML IV SCH ×2 (15:10→20:08)
[2017-10-12 16:30] VITALS: BP 144/92
[2017-10-12] MEDS: KETOROLAC 15 MG/ML VIAL IVP PRN (17:15)
[2017-10-12 20:05] VITALS: BP 129/84
[2017-10-12] MEDS: metroNIDAZOLE 500MG/100ML IVPB 100 ML IV SCH (21:17)
[2017-10-13] VITALS: BP 133/96
[2017-10-13 01:00] VITALS: BP 136/88
[2017-10-13] MEDS: NS W/KCL 20 MEQ/L 1,000 ML IV SCH ×3 (02:00→12:20)
[2017-10-13] MEDS: KETOROLAC 15 MG/ML VIAL IVP PRN (07:03)
[2017-10-13 08:30] VITALS: BP 142/94
[2017-10-13] MEDS: metroNIDAZOLE 500MG/100ML IVPB 100 ML IV SCH (08:57)
[2017-10-13] MEDS: CIPROFLOXACIN IV 400MG/200ML 200 ML IV SCH (10:01)
[2017-10-13] MEDS: fentaNYL INJECTION 100 MCG/2 ML AMP IV PRN (12:24)
[2017-10-13 15:30] VITALS: BP 155/92
[2017-10-13] MEDS ORDERED: TRAM50TA2 PO (16:01)
[2017-10-13] MEDS ORDERED: LISI-552 PO (16:02)
[2017-10-13] MEDS ORDERED: ONDA8TAB9 PO (16:03)
--- NOTE | 2017-10-13 16:05 | Discharge Instructions ---
Discharge Instructions Patient Instructions Patient Instructions: Your blood pressure here in the hospital trended too high. A medication has been prescribed for you. You should find a local provider to manage this. Your liver enzymes were somewhat elevated. This should also be followed by the new provider. Return to The Hospital For: Decline in performance Activity & Diet Discharge Diet: No Restrictions Activity as Tolerated: Yes YURIY PEÑA MD October 13, 2017 16:05
--- NOTE | 2017-10-13 16:08 | Progress Note-Hospitalist ---
Progress Note Progress Notes/Assess & Plan Date Seen 10/13/17 Time Seen by Provider: 16:05 Assessment & Plan The patient is much more animated today and even a bit agitated. He has trended towards hypertension on the vital signs. He states that he used to take antihypertensives but stopped taking them. His liver enzymes were modestly elevated. In addition his blood alcohol was significantly elevated at admission. These 2 findings are likely to be related. He now reports that he is very hungry and must eat. Physical exam: Lungs are clear to auscultation. CV is regular without murmur. Abdomen is soft. Impression: 1.hypertension. 2.acute mild hepatitis. 3.nausea and vomiting. Plan: Discharge. See medications and routines on the discharge sequence Focused Exam Lactate Level 10/11/17 17:06: Lactic Acid Level 3.84*H 10/11/17 19:04: Lactic Acid Level 1.80 YURIY PEÑA MD October 13, 2017 16:08
[2017-10-13 16:35] VITALS: BP 142/94
--- NOTE | 2017-10-14 11:41 | Physician Query-Final Dx ---
JAZIEL ADLER 10/14/17 1141: Final Diagnosis Give Final Diagnosis Please give Final Diagnosis ALLIE VU 11/04/17 1459: JAZIEL ADLER October 14, 2017 11:41 ALLIE VU November 04, 2017 14:59
--- NOTE | 2017-11-04 13:46 | Short Stay Summary-Hospitalist ---
Short Stay Diagnosis D/C Date October 13, 2017 at 16:35 1.acute and subacute alcohol toxicity. 2.hypertension untreated by patient decision Clinical Quality Measures DVT/VTE Risk/Contraindication: Risk Factor Score Per Nursin RFS Level Per Nursing on Admit: 2=Moderate YURIY PEÑA MD November 04, 2017 13:46
== END 2017-10-13 16:35 | disposition home or self-care (01) | DRG 918 ==
LOC: EDUNIT# 16:06 → ER 16:07 → 4TH 18:25
PROVIDERS: ADMIT Family Medicine; ATTEND Family Medicine
DX: T51.0X1A Toxic effect of ethanol, accidental (unintentional), initial encounter (principal); I10 Essential (primary) hypertension; B17.9 Acute viral hepatitis, unspecified; E87.6 Hypokalemia; R11.2 Nausea with vomiting, unspecified; J45.909 Unspecified asthma, uncomplicated; F41.9 Anxiety disorder, unspecified; F17.210 Nicotine dependence, cigarettes, uncomplicated; F43.10 Post-traumatic stress disorder, unspecified; Z87.820 Personal history of traumatic brain injury; Z72.89 Other problems related to lifestyle
CPT/HCPCS: 36415; 71045; 74177; 80053; 80306; 80320; 80329; 81000; 83605; 83690; 84484; 85025; 85610; 85730; 87040; 87220; 87430; 87804; 93005; 96361; 96372; 96374; 96375; 96376

== ENCOUNTER 2018-06-15 22:18 | Emergency (ER) | payer OTHER ==
[~2018-06-15] VITALS: Ht 180.3 cm; Wt 86.6 kg
[~2018-06-15 22:18] MED LIST changes: +ACET-2267 PO; +IBUP-30 PO; +LISI-552 PO; +ONDA8TAB9 PO; +TRAM50TA2 PO
--- OUTSIDE RECORDS SUMMARY | 2018-06-15 22:22 | XMS REPORT | Clinical Summary ---
Author Author [facility] Address Unknown Phone Unavailable Care Team Providers Care Client Account Representative Name Role Phone PP Unavailable Allergies No [...] hours as 13 needed for Pain. fexofenadine (NAGELA) Take 1 tablet (180 mg 30 tablet [...] Varicella Vaccines (1 of 1995 2 - 2-dose adolescent series) DTaP,Tdap,and Td Vaccines 2001 09/16/1995, 06/19/1988 (3 - Tdap) Influenza Vaccine (#1) 2018 04/06/2013, 05/07/2011 Results Not on filefrom Last 3 Months
--- OUTSIDE RECORDS SUMMARY | 2018-06-15 22:22 | XMS REPORT | Clinical Summary ---
Author Author [facility] Organization [facility] Address Unknown Phone Unavailable Care Team Providers Care Angiography Nurse Name Role Phone Alejandra Reynolds DO PCP Source Comments Some departments are not documenting in the electronic medical record. If you do not see the information that you expected, contact Release of Information in the Health Information Management department at [phone] for further assistance in locating additional records.[facility] Allergies Not on File Medications Not on file Active Problems Not on file Social History Date Tobacco Use Types Packs/Day Years Used Never Assessed Sex Assigned at Date Recorded Not on file Industry Job Start Date Occupation Not on file Not on file Not on file Travel End Travel History Travel Start No recent travel history available. Last Filed Vital Signs Not on file Plan of Treatment Health Maintenance Due Date Last Done Comments PHYSICAL (COMPREHENSIVE) 1989 EXAM HIV SCREENING 1997 DTAP/TDAP VACCINES ( - 2000 Tdap) INFLUENZA VACCINE 01/06/2018 Results Not on filefrom Last 3 Months Advance Directives Patient has advance care planning documents on file. For more information, please contact: [facility] [address] [place] [address]
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
--- OUTSIDE RECORDS SUMMARY | 2018-06-15 22:23 | XMS REPORT | Continuity of Care Document ---
Author Author [facility] Organization [facility] Address Unknown Phone Unavailable Care Team Providers Care Landscape Horticulture Instructor Name Role Phone NAYELI HASSAN [facility] PP Insurance Providers Payer Name Policy Type Covered Democrat Covered Democrat Id Relationship Subscriber Subscriber Id REBA [id number] SELF / SAME PATIENT RHYS ANAND [id number] Problems Medical Problem Onset Date Chronic back pain Allergies, Adverse Reactions, Alerts Allergen Type Severity Reaction Last Updated No Known Drug Allergies - Nkda Allergy Unknown 03/16/13 Medications Medication Dose Route Sig Days/Qty NO HOME MEDICATIONS (No Home Medications) LORTAB 5/500 501 TAB (HYDROcodone/Acetaminophen) 1 - 2 TAB PO Q 4-6 H PRN #10 Vital Signs Vital Reading Collection Date/Time Result Blood Pressure 03/16/13 10:20am 143/89 Ortho 03/16/13 10:20am SI Temperature 03/16/13 10:20am 98.0 Source 03/16/13 10:20am O Respirations 03/16/13 10:20am 16 Pulse 03/16/13 10:20am 88 Type 03/16/13 10:20am PO SPO2 (%) 03/16/13 10:20am 100 Height(cm) 03/16/13 10:20am 177.8 Height(ft) 03/16/13 10:20am 5 Height(in) 03/16/13 10:20am 010 Weight(Kg) 03/16/13 10:20am 81.8 Weight(lbs) 03/16/13 10:20am 180.0 Results Test Date Result Interp. Ref. Range Basophils # 10/07/07 0.1 0.0 - 0.2 Basophils % 10/07/07 0.8 % 0.0 - 2.0 Eosinophils # 10/07/07 0.1 0.0 - 0.7 Eosinophils % 10/07/07 1.4 % 0 - 4.0 Granulocytes # 10/07/07 5.5 1.4 - 6.5 Granulocytes (%) 10/07/07 62.6 % 42.2 - 75.2 Hematocrit 10/07/07 41.8 % L 42.0 - 52.0 Hemoglobin 10/07/07 14.1 g/dl 13.5 - 18.0 Lymphocytes # 10/07/07 2.5 1.2 - 3.4 Lymphocytes % 10/07/07 28.3 % 20 - 51 Mean Corpuscular Hemoglobin 10/07/07 30 pg 27 - 31 Mean Corpuscular Hemoglobin Concent 10/07/07 34 g/dl 33 - 37 Mean Corpuscular Volume 10/07/07 90 fl 78 - 100 Mean Platelet Volume 10/07/07 6.9 fl L 7.4 - 10.4 Monocytes # 10/07/07 0.6 0.1 - 0.6 Monocytes % 10/07/07 6.9 % 1.7 - 9.3 Platelet Count 10/07/07 351 K/mm3 130 - 400 Red Blood Count 10/07/07 4.67 M/mm3 4.2 - 5.6 Red Cell Distribution Width 10/07/07 13.0 % 11.5 - 14.5 White Blood Count 10/07/07 8.8 K/mm3 4.8 - 10.8 Alanine Aminotransferase (ALT/SGPT) 10/07/07 15 U/L L 21 - 72 Albumin 10/07/07 4.4 gm/dL 3.5 - 5.0 Alkaline Phosphatase 10/07/07 62 U/L 38 - 126 Anion Gap 10/07/07 13 mmol/L 7 - 16 Aspartate Amino Transf (AST/SGOT) 10/07/07 22 U/L 17 - 59 Blood Urea Nitrogen 10/07/07 7 mg/dL L 9 - 20 Calcium Adjusted for Albumin 10/07/07 9.1 mg/dL 8.4 - 10.2 Calcium Level 10/07/07 9.4 mg/dL 8.4 - 10.2 Carbon Dioxide Level 10/07/07 23 mmol/L 21 - 32 Chloride Level 10/07/07 106 mmol/L 98 - 107 Creatinine 10/07/07 0.93 mg/dL 0.8 - 1.5 Estimated GFR () 10/07/07 127 - Estimated GFR (Non- 10/07/07 105 - Glucose Level 10/07/07 87 mg/dL 74 - 106 Potassium Level 10/07/07 3.6 mmol/L 3.4 - 5.0 Serum Total Protein 10/07/07 7.4 gm/dL 6.3 - 8.2 Sodium Level 10/07/07 142 mmol/L 137 - 145 Total Bilirubin 10/07/07 0.4 mg/dL 0.2 - 1.3 Encounters Encounter Location Date/Time Departed Emergency [facility] 03/16/13 11:04am
[2018-06-15 22:44] LABS: BASOPHILS % (AUTO) 0 % (0-10); EOSINOPHILS # (AUTO) 0.3 10^3/uL (0.0-0.3); EOSINOPHILS % (AUTO) 3 % (0-10); HEMATOCRIT 43 % (40-54); HEMOGLOBIN 15.2 G/DL (13.3-17.7); LYMPHOCYTES % (AUTO) 32 % (12-44); MEAN CORPUSCULAR HEMOGLOBIN 33 PG (25-34); MEAN CORPUSCULAR HGB CONC 35 G/DL (32-36); MEAN CORPUSCULAR VOLUME 93 FL (80-99); MONOCYTES % (AUTO) 10 % (0-12); NEUTROPHILS # (AUTO) 5.2 X 10^3 (1.8-7.8); NEUTROPHILS % (AUTO) 55 % (42-75); PLATELET COUNT 238 10^3/uL (130-400); RED BLOOD COUNT 4.65 10^6/uL (4.35-5.85); RED CELL DISTRIBUTION WIDTH 14.5 % (10.0-14.5); WHITE BLOOD COUNT 9.4 10^3/uL (4.3-11.0)
[2018-06-15 22:54] LABS: INR 0.9 (0.8-1.4); PROTHROMBIN TIME PATIENT 11.7 SEC (12.2-14.7)
[2018-06-15 23:00] LABS: ALANINE AMINOTRANSFERASE 16 U/L (0-55); ALBUMIN 4.3 GM/DL (3.2-4.5); ALKALINE PHOSPHATASE 55 U/L (40-136); BILIRUBIN,TOTAL 0.2 MG/DL (0.1-1.0); BUN/CREATININE RATIO 6; CALCIUM 8.6 MG/DL (8.5-10.1); CARBON DIOXIDE 19 MMOL/L (21-32); CHLORIDE 112 MMOL/L (98-107); GFR ESTIMATED > 60; GLUCOSE 92 MG/DL (70-105); POTASSIUM 3.5 MMOL/L (3.6-5.0); SODIUM 144 MMOL/L (135-145); TOTAL PROTEIN 6.9 GM/DL (6.4-8.2)
[2018-06-15 23:20] LABS: TSH (THYROID ANALYZER) 2.11 UIU/ML (0.35-4.94)
--- NOTE | 2018-06-15 23:36 | NUR ---
PT REQUESTS TO LEAVE AMA, EXPLAINED POSSIBLE COMPLICATIONS, PT ACKNOWLEDGES AND REQUESTS AMA PAPERS, COMPLIED WITH REQUEST.
[2018-06-15 23:38] VITALS: BP 120/85
== END 2018-06-16 00:02 | disposition left against medical advice (07) ==
LOC: EDUNIT# 22:18 → ER 22:19
DX: R06.02 Shortness of breath (principal)
CPT/HCPCS: 36415; 80053; 80320; 84443; 85025; 85610; 85730; 93041